=== PATIENT | female | born 1940 | race Two or more races ===

== ENCOUNTER 2020-01-11 12:53 | Emergency (ER) | payer OTHER ==
[~2020-01-11] VITALS: Ht 152.4 cm; Wt 65.8 kg
[~2020-01-11 12:53] MED LIST: AK-CON15 ML OP; ASPIR 8181 MG; CARVEDILOL6.25 MG; CATAFLAM50 MG PO; CRESTOR5 MG; FAMOTIDINE20 MG; GARAMYCIN0.15 MG/DR OP; ISOSORBIDE DINIT5 MG; JANUMET 50-1,1 UDTAB; LASIX40 MG; LEVAQUIN750 MG PO; LINEZOLID600 MG; Lipitor 40MG PO; NITROFURANTOIN100 MG; ORPH100T PO; PLAVIX75 MG; SIMVASTATIN40 MG; SYNTHROID75 MCG; Synthroid PO; TRAMADOL HCL-AP1 TAB PO; VASOTEC 20MG TAB PO; VASOTEC20 MG
[2020-01-11] MEDS ORDERED: DESOXYN5 MG (14:32)
== END 2020-01-11 21:34 | disposition home or self-care (01) ==
LOC: ER 12:53
DX: N20.0 Calculus of kidney (principal); N39.0 Urinary tract infection, site not specified

== ENCOUNTER 2022-02-21 13:41 | Outpatient (CLI) | payer OTHER ==
[~2022-02-21 13:41] MED LIST changes: +DESOXYN5 MG
[2022-02-22] MEDS ORDERED: PRILOSEC OTC20 MG (12:39)
== END 2022-02-21 13:57 | disposition home or self-care (01) ==
LOC: LAB 13:41
PROVIDERS: ATTEND Radiology Diagnostic Radiology
DX: R10.30 Lower abdominal pain, unspecified (principal)

== ENCOUNTER 2022-02-22 09:24 | Outpatient (CLI) | payer OTHER ==
[2022-02-22] MEDS ORDERED: PRILOSEC OTC20 MG (12:39)
== END 2022-02-22 09:32 | disposition home or self-care (01) ==
LOC: TOM 09:24
PROVIDERS: ATTEND Internal Medicine Gastroenterology
DX: R10.30 Lower abdominal pain, unspecified (principal)

== ENCOUNTER 2022-02-22 12:22 | Emergency (ER) | payer OTHER ==
[~2022-02-22] VITALS: Ht 165.1 cm; Wt 59.0 kg
[2022-02-22] MEDS ORDERED: PRILOSEC OTC20 MG (12:39)
== END 2022-02-22 19:14 | disposition home or self-care (01) ==
LOC: ER 12:22
DX: R11.2 Nausea with vomiting, unspecified (principal); N20.0 Calculus of kidney; K57.30 Diverticulosis of large intestine without perforation or abscess without bleeding

== ENCOUNTER 2022-02-24 13:56 | Outpatient (CLI) | payer OTHER ==
[~2022-02-24 13:56] MED LIST changes: +PRILOSEC OTC20 MG
== END 2022-02-24 14:04 | disposition home or self-care (01) ==
LOC: LAB 13:56
PROVIDERS: ATTEND Radiology Diagnostic Radiology
DX: N20.0 Calculus of kidney (principal)

== ENCOUNTER 2022-02-27 06:39 | Outpatient (CLI) | payer OTHER | END 2022-02-27 06:44 | disposition home or self-care (01) | LOC: LAB 06:39 | PROVIDERS: ATTEND Radiology Diagnostic Radiology | DX: R10.30 Lower abdominal pain, unspecified (principal) ==

== ENCOUNTER 2022-02-27 08:49 | Emergency (ER) | payer OTHER ==
[~2022-02-27] VITALS: Ht 152.4 cm; Wt 59.0 kg
== END 2022-02-27 15:36 | disposition home or self-care (01) ==
LOC: ER 08:49
DX: R10.84 Generalized abdominal pain (principal); K57.90 Diverticulosis of intestine, part unspecified, without perforation or abscess without bleeding; N20.0 Calculus of kidney; Z88.0 Allergy status to penicillin; Z88.8 Allergy status to other drugs, medicaments and biological substances

== ENCOUNTER 2022-05-14 13:16 | Emergency (ER) | payer OTHER ==
[~2022-05-14] VITALS: Ht 152.4 cm; Wt 54.4 kg
[2022-05-14] MEDS ORDERED: PLAVIX75 MG (13:29)
== END 2022-05-14 19:46 | disposition home or self-care (01) ==
LOC: ER 13:16
DX: N20.0 Calculus of kidney (principal); Z88.0 Allergy status to penicillin; Z88.6 Allergy status to analgesic agent; Z20.822 Contact with and (suspected) exposure to COVID-19

== ENCOUNTER 2023-01-19 17:00 | Emergency (ER) | payer OTHER ==
[~2023-01-19] VITALS: Ht 152.4 cm; Wt 61.2 kg
[2023-01-19] MEDS ORDERED: NEURONTIN300 MG PO (18:42)
[2023-01-19] MEDS ORDERED: ZOVIRAX800 MG PO (18:42)
== END 2023-01-19 18:56 | disposition home or self-care (01) ==
LOC: ER 17:00
DX: B02.9 Zoster without complications (principal); E11.9 Type 2 diabetes mellitus without complications; Z79.84 Long term (current) use of oral hypoglycemic drugs; Z88.0 Allergy status to penicillin; Z88.6 Allergy status to analgesic agent; I11.9 Hypertensive heart disease without heart failure

== ENCOUNTER 2023-02-01 10:12 | Emergency (ER) | payer OTHER ==
[~2023-02-01] VITALS: Ht 152.4 cm; Wt 59.0 kg
[~2023-02-01 10:12] MED LIST changes: +NEURONTIN300 MG PO; +ZOVIRAX800 MG PO
[2023-02-01] MEDS ORDERED: POTASSIUM CITR15 MEQ (10:56)
[2023-02-01] MEDS ORDERED: KLOR-CON8 MEQ (10:56)
== END 2023-02-01 13:44 | disposition home or self-care (01) ==
LOC: ER 10:12
DX: K29.70 Gastritis, unspecified, without bleeding (principal); Z88.0 Allergy status to penicillin; I11.9 Hypertensive heart disease without heart failure; I10 Essential (primary) hypertension; E78.00 Pure hypercholesterolemia, unspecified; E11.9 Type 2 diabetes mellitus without complications; Z79.84 Long term (current) use of oral hypoglycemic drugs

== ENCOUNTER 2023-03-05 13:51 | Emergency (ER) | payer OTHER ==
[~2023-03-05] VITALS: Ht 152.4 cm; Wt 62.6 kg
[~2023-03-05 13:51] MED LIST changes: +KLOR-CON8 MEQ; +POTASSIUM CITR15 MEQ
== END 2023-03-05 16:18 | disposition home or self-care (01) ==
LOC: ER 13:51
DX: B02.29 Other postherpetic nervous system involvement (principal); Z88.0 Allergy status to penicillin

== ENCOUNTER 2023-03-14 11:08 | Emergency (ER) | payer OTHER ==
[~2023-03-14] VITALS: Ht 152.4 cm; Wt 53.5 kg
== END 2023-03-14 18:12 | disposition home or self-care (01) ==
LOC: ER 11:08
DX: B02.29 Other postherpetic nervous system involvement (principal); Z87.442 Personal history of urinary calculi; Z88.0 Allergy status to penicillin; E11.9 Type 2 diabetes mellitus without complications; Z79.84 Long term (current) use of oral hypoglycemic drugs; Z20.822 Contact with and (suspected) exposure to COVID-19

== ENCOUNTER 2023-06-02 07:07 | Emergency (ER) | payer OTHER ==
[~2023-06-02] VITALS: Ht 152.4 cm; Wt 56.7 kg
[2023-06-02] MEDS ORDERED: NEURONTIN300 MG PO (07:19)
== END 2023-06-02 13:48 ==
LOC: ER 07:07
DX: R07.89 Other chest pain (principal); Z88.0 Allergy status to penicillin; E11.9 Type 2 diabetes mellitus without complications; Z79.84 Long term (current) use of oral hypoglycemic drugs; I25.10 Atherosclerotic heart disease of native coronary artery without angina pectoris; E03.9 Hypothyroidism, unspecified; I10 Essential (primary) hypertension; Z86.19 Personal history of other infectious and parasitic diseases; F41.8 Other specified anxiety disorders; B02.29 Other postherpetic nervous system involvement

== ENCOUNTER 2024-09-10 12:02 | Inpatient (IN) | payer OTHER ==
[~2024-09-10] VITALS: Ht 152.4 cm; Wt 68.0 kg
--- NOTE | 2024-09-10 12:22 | NUR ---
PTE ALERTA Y ORIENTADA X3 REFIERE TENER DOLOR EN SENO DERECHO DESDE HACE MAS DE 1 ANO, LUEGO DE AHSAN PADECIDO CULEBRILLA. AL MOMENTO FAMILIAR REFIERE QUE TIENE CATARRO. SE MIDEN SV Y SE UBICA.
[2024-09-10] MEDS ORDERED: LIRICA (12:25)
[2024-09-10] MEDS ORDERED: BENZONATATE 100 MG CAPSULE PO ONE (12:45)
[2024-09-10] MEDS ORDERED: LEVALBUTEROL HCL 0.63 MG/3 ML SOLUTION IH SCH (12:45)
[2024-09-10] MEDS ORDERED: METHYLPREDNISOLONE SOD SUCC 40 MG VIAL IM ONE (12:45)
[2024-09-10] MEDS ORDERED: FAMOTIDINE/PF 20 MG/2 ML VIAL IV ONE (13:00)
[2024-09-10] MEDS ORDERED: 0.9 % SODIUM CHLORIDE 1,000 ML IV ONE (13:00)
[2024-09-10 13:55] LABS: ABG PH 7.385 (7.35-7.45); ABG PO2 87.2 mmHg (80-100); ABG pCO2 39.3 mmHg (35-45); BASE EXCESS -1.8 mmol/l; SaO2 96.4 %; Tco2 24.2 mmol/l; allen test SATISFACTORY; o2 28 %; puncture site RADIAL RIGHT
[2024-09-10 13:57] LABS: HEMATOCRIT 36.5 % (36.0-45.00); HEMOGLOBIN 12.2 g/dL (12.0-15.00); MEAN CORPUSCULAR HEMOGLOBIN 31.3 pg (27.00-32.0); MEAN CORPUSCULAR HGB CONC 33.3 g/dl (32.0-36.0); PLATELET COUNT 137 K/uL (150-450); RED BLOOD COUNT 3.88 M/uL (4.00-6.00); RED CELL DISTRIBUTION WIDTH 15.8 % (11.5-14.5)
[2024-09-10 14:08] LABS: ERYTHROCYTE SEDIMENTATION RATE 100 mm/hr
[2024-09-10 14:35] LABS: ALBUMIN 2.6 gm/dL (3.4-5.0); BILIRUBIN TOTAL 0.36 mg/dL (0.3-1.2); CALCIUM 9.6 mg/dL (8.5-10.1); CREATININE SERUM 1.21 mg/dL (0.55-1.02); GFR 42.19; GLOBULINA 4.3 G/DL (2.4-3.5); POTASSIUM 4.15 mEq/L (3.5-5.1); TOTAL PROTEIN 6.9 gm/dL (6.4-8.2)
[2024-09-10 14:38] LABS: C-REACTIVE PROTEIN 9.86 MG/DL (0.00-0.29)
[2024-09-10 14:54] LABS: INR 1.01; PARTIAL THROMBOPLASTIN TIME 24.7 SECONDS (22.0-34.0)
[2024-09-10 16:50] LABS: PH,URINE 5.5 (5.0-8.0); URINE APPEARANCE Clear; URINE BILIRRUBIN Negative (NEGATIVE); URINE BLOOD Negative; URINE COLOR Yellow; URINE GLUCOSE Negative (NEGATIVE); URINE KETONE Negative (NEGATIVE); URINE LEUKOCYTE Small; URINE NITRATE Negative; URINE UROBILINOGEN 0.2 E.U./dl
[2024-09-10 16:55] LABS: URINE BACTERIA 400.6 uL (0.0-1933); URINE CAST 1.98 uL (0.0-1.40); URINE EPITHELIAL CELLS 38.3 uL (0.0-38.8); URINE RBC 2.5 uL (0.0-20.8); URINE WBC 26.4 uL (0.0-23.2)
[2024-09-10 17:05] LABS: URINE PROTEIN 100 (NEGATIVE)
[2024-09-10] MEDS ORDERED: FUROsemide 40 MG/4 ML VIAL IV STA (18:59)
[2024-09-10] MEDS ORDERED: Pregabalin 25 MG CAPSULE PO SCH (19:08)
[2024-09-10] MEDS ORDERED: DEXTROSE 50 % IN WATER 0.5 G/ML DISP.SYRIN IV PRN (19:15)
[2024-09-10] MEDS ORDERED: INSULIN LISPRO 1,000 UNIT/10 ML UNITS SUBCUTANEO PRN (19:15)
[2024-09-10 21:12] LABS: CHOL HDL RATIO 2.8 (0-5.0)
[2024-09-10 21:15] LABS: TSH 0.089 uIU/mL (0.358-3.74)
[2024-09-11] MEDS ORDERED: FUROsemide 20 MG/2 ML VIAL IV SCH ×2 (01:00→21:00)
[2024-09-11 08:00] VITALS: BP 123/65; O2SAT 100
[2024-09-11] MEDS ORDERED: ASPIRIN 81 MG TABLET.EC PO SCH (09:00)
[2024-09-11] MEDS ORDERED: ENOXAPARIN SODIUM 30 MG/0.3 ML SYRINGE SUBCUTANEO SCH (09:00)
[2024-09-11] MEDS ORDERED: PANTOPRAZOLE SODIUM 40 MG TABLET.DR PO SCH (09:00)
[2024-09-11] MEDS ORDERED: AMINO ACIDS/PROTEIN HYDROLYS 30 ML BLIST.PACK PO SCH (09:00)
[2024-09-11] MEDS ORDERED: Pregabalin 50 MG CAPSULE PO SCH (09:00)
[2024-09-11] MEDS ORDERED: KETOROLAC TROMETHAMINE 30 MG VIAL IV NR (14:00)
[2024-09-11 18:32] VITALS: BP 96/53; O2SAT 96
[2024-09-11] MEDS ORDERED: ALPRAzolam 0.5 MG TABLET PO SCH (21:00)
[2024-09-11] MEDS ORDERED: TRAZODONE HCL 50 MG TABLET PO SCH (21:00)
[2024-09-11 22:20] VITALS: BP 132/70; O2SAT 96
[2024-09-11 22:44] VITALS: O2SAT 98
[2024-09-12] VITALS (7 sets, daily range): BP systolic 93–127; BP diastolic 51–63; O2SAT 97–99
[2024-09-12 07:05] LABS: HEMOGLOBIN 11.7 g/dL (12.0-15.00); MEAN CELL VOLUME 95.7 fL (80.00-100.00); MEAN CORPUSCULAR HEMOGLOBIN 31.9 pg (27.00-32.0); MEAN CORPUSCULAR HGB CONC 33.3 g/dl (32.0-36.0); PLATELET COUNT 130 K/uL (150-450); RED BLOOD COUNT 3.66 M/uL (4.00-6.00); RED CELL DISTRIBUTION WIDTH 15.1 % (11.5-14.5)
[2024-09-12 07:31] LABS: ALBUMIN 2.8 gm/dL (3.4-5.0); BILIRUBIN TOTAL 0.32 mg/dL (0.3-1.2); CALCIUM 9.2 mg/dL (8.5-10.1); CREATININE SERUM 1.39 mg/dL (0.55-1.02); GFR 35.95; GLOBULINA 4.1 G/DL (2.4-3.5); MAGNESIUM 1.9 mg/dL (1.8-2.4); PHOSPHOROUS 3.8 mg/dL (2.5-4.9); POTASSIUM 4.36 mEq/L (3.5-5.1); TOTAL PROTEIN 6.9 gm/dL (6.4-8.2)
[2024-09-12] MEDS ORDERED: FUROsemide 20 MG/2 ML VIAL IV SCH (09:00)
[2024-09-12] MEDS ORDERED: RINGERS SOLUTION,LACTATED 500 ML IV STA (16:36)
[2024-09-12] MEDS ORDERED: IRON FUM,PS/FOLIC/BCOMP,C NO.9 1 CAP CAPSULE PO SCH (19:51)
[2024-09-13] VITALS: BP 105/53; O2SAT 97
[2024-09-13 08:00] VITALS: BP 109/58; O2SAT 100
[2024-09-13] MEDS ORDERED: FUROsemide 20 MG TABLET PO SCH (09:00)
[2024-09-13 13:49] VITALS: O2SAT 100
[2024-09-13] MEDS ORDERED: ST. JOSEPH ASPI81 M2 PO (16:22)
[2024-09-13] MEDS ORDERED: SYNTHROID75 MCG PO (16:22)
[2024-09-13] MEDS ORDERED: CARVEDILOL3.125 MG PO (16:22)
[2024-09-13] MEDS ORDERED: FARXIGA10 MG PO (16:22)
[2024-09-13] MEDS ORDERED: INTEGRA PLUS C1 EACH PO (16:22)
[2024-09-13] MEDS ORDERED: FUROSEMIDE20 MG PO (16:22)
== END 2024-09-14 08:22 | disposition home or self-care (01) | DRG 292 ==
LOC: ER 12:04 → SEC-K 19:40 → SURG 19:40
PROVIDERS: General Practice; ADMIT Internal Medicine; ATTEND Internal Medicine
PROC: BT4JZZZ Ultrasonography of Kidneys and Bladder (ICD-10-PCS; 2024-09-10)
PROC: B24BZZZ Ultrasonography of Heart with Aorta (ICD-10-PCS; 2024-09-10)
PROC: 4A12X4Z Monitoring of Cardiac Electrical Activity, External Approach (ICD-10-PCS; principal; 2024-09-11)
PROC: BW24ZZZ Computerized Tomography (CT Scan) of Chest and Abdomen (ICD-10-PCS; 2024-09-11)
DX: I13.0 Hypertensive heart and chronic kidney disease with heart failure and stage 1 through stage 4 chronic kidney disease, or unspecified chronic kidney disease (principal); B02.29 Other postherpetic nervous system involvement; I50.20 Unspecified systolic (congestive) heart failure; N17.9 Acute kidney failure, unspecified; E78.5 Hyperlipidemia, unspecified; E03.9 Hypothyroidism, unspecified; N18.9 Chronic kidney disease, unspecified; D64.9 Anemia, unspecified; D69.6 Thrombocytopenia, unspecified; Z95.810 Presence of automatic (implantable) cardiac defibrillator; N20.0 Calculus of kidney